=== PATIENT | male | born 1975 | race Caucasian/White ===

== ENCOUNTER → 2021-06-08 | Outpatient (CLI) | payer BC ==
[2021-06-08 10:11] LABS: HEMOGLOBIN 16.5 gm/dl (14.0-17.5); RED BLOOD COUNT 5.02 M/UL (4.20-5.50); WHITE BLOOD COUNT 9.7 K/UL (4.5-11.0)
[2021-06-09 07:11] LABS: BUN 11 mg/dL (6-24); BUN/CREATININE RATIO 11 (9-20); CALCIUM, SERUM 9.5 mg/dL (8.7-10.2); CARBON DIOXIDE, TOTAL 22 mmol/L (20-29); CHLORIDE, SERUM 102 mmol/L (96-106); CREATININE, SERUM 1.04 mg/dL (0.76-1.27); EGFR IF AFRICN AM 100 (>59); EGFR IF NONAFRICN AM 86 (>59); GLUCOSE, SERUM 89 mg/dL (65-99); POTASSIUM, SERUM 4.6 mmol/L (3.5-5.2); SODIUM, SERUM 141 mmol/L (134-144)
[2021-06-09 08:14] LABS: ALBUMIN 4.4 g/dL (4.0-5.0); ALKALINE PHOSPHATASE 127 IU/L (44-121); ALT (SGPT) 29 IU/L (0-44); AST (SGOT) 18 IU/L (0-40); BILIRUBIN, DIRECT 0.15 mg/dL (0.00-0.40); BILIRUBIN, TOTAL 0.4 mg/dL (0.0-1.2); CHOLESTEROL, TOTAL 124 mg/dL (100-199); HDL CHOLESTEROL 32 mg/dL (>39); LDL CHOLESTEROL CALC 70 mg/dL (0-99); LDL/HDL RATIO 2.2 ratio (0.0-3.6); PROTEIN, TOTAL 7.5 g/dL (6.0-8.5); T. CHOL/HDL RATIO 3.9 ratio (0.0-5.0); TRIGLYCERIDES 123 mg/dL (0-149); VITAMIN D, 25-HYDROXY 23.6 ng/mL (30.0-100.0)
== END ==
LOC: LAB 09:46
PROVIDERS: Physician Assistant
DX: R73.03 Prediabetes (principal); R53.83 Other fatigue
CPT/HCPCS: 36415; 80048; 80061; 80076; 82607; 84443; 85025